=== PATIENT | female | born 1950 | race Caucasian/White ===

== ENCOUNTER 2016-09-08 09:10 | Outpatient (CLI) | payer MEDICARE, BC ==
[2014-09-01 13:59] VITALS: BMI 18.7
[~2016-09-08 09:10] MED LIST: ARMOUR THYROID30 MG PO; CYMBALTA60 MG PO; DHEA25 M1 PO; ESTRACE 0.5 MG0.5 MG PO; HYDROCODON-ACE1 EAC7 PO; LISINOPRIL-HCTZ1 TA2 PO; LOVASTATIN20 MG; PRILOSEC20 MG PO; PROMETRIUM100 MG PO; TOPROL XL25 MG
== END 2016-09-08 12:51 ==
LOC: D.MAMMO 09:10
DX: Z12.31 Encounter for screening mammogram for malignant neoplasm of breast (principal)

== ENCOUNTER → 2018-03-11 07:43 | Outpatient (CLI) | payer MEDICARE, BC ==
[2014-09-01 13:59] VITALS: BMI 18.7
== END | disposition home or self-care (01) ==
LOC: D.CT 07:43
DX: R91.1 Solitary pulmonary nodule (principal)